=== PATIENT | male | born 1975 | race Caucasian/White ===

== ENCOUNTER 2019-08-02 09:19 | Outpatient (CLI) | payer OTHER, SELFPAY ==
[2019-08-02 09:34] LABS: Basophils Absolute Auto 0.1 K/mm3 (0.0-0.1); Eosinophils Absolute Auto 0.5 K/mm3 (0-0.3); Hematocrit 43.1 % (42.0-52.0); Hemoglobin 14.4 g/dL (14.0-18.0); Immature Granulocyte Absolute 0.02 K/mm3 (0.00-0.031); Immature Granulocyte Percent A 0.2 % (0-0.5); Lymphocytes Absolute Auto 3.19 K/mm3 (0.9-3.2); Lymphocytes Percent Auto 39.2 % (18.3-44.2); Mean Corpuscular HGB Conc 33.4 g/dl (32-36); Mean Corpuscular Hemoglobin 30.8 pg (26-34); Mean Corpuscular Volume 92.1 fl (80-100); Mean Platelet Volume 8.6 fl (7.4-10.4); Monocytes Absolute Auto 0.9 K/mm3 (0.1-0.6); Monocytes Percent Auto 11.1 % (2.6-8.5); Neutrophils Absolute Auto 3.5 K/mm3 (1.3-6.7); Neutrophils Percent Auto 42.5 % (45.5-73.1); Platelet Count Result 322 k/mm3 (150-375); Red Blood Count 4.68 M/mm3 (4.6-6.20); Red Cell Distribution Width 12.8 % (11.5-14.5); White Blood Count 8.1 K/mm3 (4.5-10.0)
[2019-08-02 11:32] LABS: Alanine Aminotransferase 36 U/L (4-50); Albumin Level 4.5 g/dL (3.5-5.1); Alkaline Phosphatase 88 U/L (38-126); Aspartate Amino Transferase 40 U/L (17-59); Bilirubin,Total 0.4 mg/dL (0.2-1.3); Blood Urea Nitrogen 10 mg/dL (9-20); CRP < 0.5 mg/dL (<1.0); Calcium 9.2 mg/dL (8.4-10.2); Carbon Dioxide 28 mmol/L (22-30); Chloride 105 mmol/L (98-107); Estimated Glomerular Filt Rate > 60; Glucose 83 mg/dL (75-110); Potassium 4.5 mmol/L (3.4-5.0); Sodium 138 mmol/L (137-145)
[2019-08-02 17:13] LABS: Erythrocyte Sedimentation Rate 13 mm/hr (0-20)
== END 2019-08-02 09:20 | disposition home or self-care (01) ==
LOC: ANHLAB 09:21
PROVIDERS: Visit Provider Internal Medicine Hematology & Oncology
DX: D72.829 Elevated white blood cell count, unspecified (principal)
CPT/HCPCS: 36415; 80053; 85025; 85652; 86140; 88184

== ENCOUNTER 2019-11-01 11:25 | Emergency (ER) | payer OTHER, SELFPAY ==
[2019-11-01 11:35] VITALS: BP 136/81; PULSE 82; RESP 16; TEMP 37.7; O2SAT 99
--- NOTE | 2019-11-01 11:38 | ED.URI ---
HPI - URI/Sore Throat General Chief Complaint: Upper Respiratory Infection Stated Complaint: possible sinus infection Time Seen by Provider: 11/01/19 11:40 Source: patient and RN notes reviewed History of Present Illness HPI Narrative: Patient is a 43-year-old male who presents the urgent care with complaints of an upper respiratory infection/sinus infection. Patient states he typically goes to his regular doctor but she was unable to get him in. Patient states that she tells him to use the [id number] remedies and he gets better . Patient states is been ongoing for approximately 3 weeks and off and on he has improved. Patient states that he does not want any antibiotic therapy for his sinusitis or prescriptions for [id number] medication that he needs a release back to work . Patient denies any fever, nausea, vomiting, shortness of breath or wheezing. States that he has been using the Mucinex, Sanjana and Sudafed as directed by his provider in the past. No other acute complaints. Patient aware of the plan of care. Related Data Home Medications Medication Instructions Recorded Confirmed No Home Medications 11/01/19 11/01/19 Allergies Allergy/AdvReac Type Severity Reaction Status Date / Time No Known Allergies Allergy Unverified 06/16/18 12:31 Review of Systems Review of Systems: Narrative: CONSTITUTIONAL: Denies fever, chills, or sweats. EYES: Denies visual changes, redness, or discharge. ENT: Reports of head congestion, rhinorrhea, stuffy nose and facial pressure CARDIOVASCULAR: Denies chest pain, palpitations, or edema. RESPIRATORY: Denies cough or dyspnea. GASTROINTESTINAL: Denies abdominal pain, nausea, vomiting, or diarrhea. GENITOURINARY: Denies dysuria or hematuria. SKIN: Denies rash or itching. MUSCULOSKELETAL: Denies back pain, joint pain, or myalgia. NEUROLOGIC: Denies headache, numbness, or weakness. All other systems reviewed are negative, except as documented in HPI. [facility] Family History Family History (Updated 11/21/15 @ 09:54 by DOCTOR UNKNOWN) Sibling Patient's brother is in good health Mother Cerebrovascular accident Social History Social History Smoking status: Light tobacco smoker Second hand tobacco smoke exposure: No Alcohol intake: never Comments At the time of my signature, I reviewed and agree with the nursing past medical, surgical, social, and family history. There is no relevant family history pertinent to the patient complaint. Exam Narrative: Exam Narrative: GENERAL: This is a well-nourished, well-developed patient, in no apparent distress. HEAD: normocephalic, atraumatic. EYES: PERRL. Sclera clear/white. Vision is grossly intact. EARS: External ears normal, auditory canals clear and without drainage, TMs normal without perforation. Hearing grossly intact. NOSE: External nose normal with no obvious nasal discharge, nares without redness, no rhinorrhea. THROAT: Mucous membranes moist, posterior pharynx clear. Mild postnasal drainage NECK: Neck supple CARDIOVASCULAR: Regular rate and rhythm without murmurs, gallops, or rubs. RESPIRATORY: Clear to auscultation. Breath sounds equal bilaterally. No wheezes, rales, or rhonchi. SKIN: warm, intact with no suspicious lesions or rash, good texture and turgor. NEURO: awake, alert, and oriented to person, place and time. There were no obvious focal neurologic abnormalities. EXTREMITIES: No clubbing, cyanosis, or edema. Course Vital Signs Vital signs: Vital Signs Temperature 99.8 F H 11/01/19 11:35 Pulse Rate 82 11/01/19 11:35 Respiratory Rate 16 11/01/19 11:35 Blood Pressure 136/81 11/01/19 11:35 Pulse Oximetry 99 11/01/19 11:35 Temperature 99.8 F H 11/01/19 11:35 Pulse Rate 82 11/01/19 11:35 Respiratory Rate 16 11/01/19 11:35 Blood Pressure 136/81 11/01/19 11:35 Pulse Oximetry 99 11/01/19 11:35 Reviewed MDM - URI/Sore Throat MDM Narrative Medical decision making n
== END 2019-11-01 11:44 | disposition left against medical advice (07) ==
PROVIDERS: Emergency Provider Nurse Practitioner Family; PCP Family Medicine
DX: J32.9 Chronic sinusitis, unspecified (principal)
CPT/HCPCS: 99211; G0463

== ENCOUNTER 2020-03-05 12:58 | Outpatient (CLI) | payer OTHER, SELFPAY ==
[2020-03-05 13:19] LABS: Basophils Absolute Auto 0.1 K/mm3 (0.0-0.1); Basophils Percent Auto 1.1 % (0.2-1.2); Eosinophils Absolute Auto 0.1 K/mm3 (0-0.3); Eosinophils Percent Auto 2.3 % (0-4.4); Hematocrit 43.5 % (42.0-52.0); Hemoglobin 14.5 g/dL (14.0-18.0); Immature Granulocyte Absolute 0.01 K/mm3 (0.00-0.031); Immature Granulocyte Percent A 0.2 % (0-0.5); Lymphocytes Absolute Auto 2.65 K/mm3 (0.9-3.2); Lymphocytes Percent Auto 46.6 % (18.3-44.2); Mean Corpuscular HGB Conc 33.3 g/dl (32-36); Mean Corpuscular Hemoglobin 30.6 pg (26-34); Mean Corpuscular Volume 91.8 fl (80-100); Mean Platelet Volume 8.6 fl (7.4-10.4); Monocytes Absolute Auto 0.6 K/mm3 (0.1-0.6); Monocytes Percent Auto 9.7 % (2.6-8.5); Neutrophils Absolute Auto 2.3 K/mm3 (1.3-6.7); Neutrophils Percent Auto 40.1 % (45.5-73.1); Platelet Count Result 355 k/mm3 (150-375); Red Blood Count 4.74 M/mm3 (4.6-6.20); Red Cell Distribution Width 12.4 % (11.5-14.5); White Blood Count 5.7 K/mm3 (4.5-10.0)
[2020-03-05 14:37] LABS: Blood Urea Nitrogen 9 mg/dL (8-26); Carbon Dioxide 33 mmol/L (22-30); Chloride 102 mmol/L (98-109); Estimated Glomerular Filt Rate > 60; Potassium 4.3 mmol/L (3.5-4.9); Sodium 142 mmol/L (138-146)
[2020-03-05 14:38] LABS: Glucose 86 mg/dL (70-105)
[2020-03-05 16:41] LABS: CRP 0.6 mg/dL (<1.0)
[2020-03-05 17:00] LABS: Erythrocyte Sedimentation Rate 14 mm/hr (0-20)
== END 2020-03-05 12:59 | disposition home or self-care (01) ==
LOC: ANHLAB 12:59
PROVIDERS: PCP Family Medicine; Visit Provider Internal Medicine Hematology & Oncology
DX: D72.829 Elevated white blood cell count, unspecified (principal)
CPT/HCPCS: 36415; 80048; 85025; 85652; 86140

== ENCOUNTER 2022-10-03 14:09 | Emergency (ER) | payer OTHER, SELFPAY ==
--- NOTE | ~2022-10-03 | CT_ITS ---
EXAMINATION: CT abdomen pelvis wo con DATE: 10/03/2022 16:37 INDICATION: Hematuria. TECHNIQUE: Computed tomography (CT) of the abdomen and pelvis was performed without intravenous contr ast. Automated exposure control and iterative reconstruction technique were employed. The dose-length product was 331.78 mGy-cm. COMPARISON: None. FINDINGS: The visualized portions of the lung bases demonstrate mild atelectasis. No pleural effusion . The heart size is normal. No pericardial effusion. The liver, gallbladder, spleen, pancreas, adrena l glands, and kidneys are normal. There are two 2 mm stones in left kidney. The prostate is mildly en larged. There are no dilated loops of bowel. The appendix is normal. There are no pathologically enla rged lymph nodes. There is no free intraperitoneal fluid. There is an ill-defined mass at right poste rior bladder wall. There is mild thoracic and lumbar spondylosis. IMPRESSION: 1. Ill-defined mass at right posterior bladder wall, which may be hematoma or urothelial carcinoma. 2. Small nonobstructing left kidney stones. Reviewed, dictated and finalized at location E. IMPRESSION: 1. Ill-defined mass at right posterior bladder wall, which may be hematoma or u rothelial carcinoma. 2. Small nonobstructing left kidney stones.
[2022-10-03 14:26] VITALS: BP 103/76; PULSE 70; RESP 18; TEMP 36.6; O2SAT 99
[2022-10-03 14:45] LABS: Appearance Urine Turbid (Clear); Bacteria Urine None Seen /hpf; Bilirubin Urine Negative (Negative); Blood Urine 3+ (Negative); Color Urine Yellow (Yellow); Glucose Urine UA Negative (Negative); Ketones Urine Negative (Negative); Leukocyte Esterase Ur Trace LEU/UL (Negative); Nitrate Urine Negative (Negative); Non Pathogenic Casts 0-2; Protein Urine 2+ mg/dL (Negative); RBC Urine >100 /hpf (0-2); Specific Grav Ur 1.018 (1.001-1.035); Squamous Epithelial Cell Urine Occasional /hpf (Few); WBC Urine 21-50 /hpf
[2022-10-03 14:50] LABS: Add Urine Microscopic? YES
--- NOTE | 2022-10-03 16:18 | ED.GENADULT ---
HPI - General Adult General Chief complaint: Urogenital-Male Stated complaint: blood in urine passing a blood clot Time Seen by Provider: 10/03/22 15:08 History of Present Illness HPI narrative: 46-year-old male presented emergency department for evaluation of hematuria. Patient reports that he did pass three clots yesterday and 1 clot today. Patient describes some increased urinary pressure but denies any pain. Patient denies any flank pain or dysuria. Patient has no prior history of kidney stones. Patient is not on any blood thinners. Related Data Home Medications Medication Instructions Recorded Confirmed No Home Medications 11/01/19 11/01/19 Allergies Allergy/AdvReac Type Severity Reaction Status Date / Time No Known Allergies Allergy Verified 10/03/22 15:31 Review of Systems Review of Systems: All systems reviewed & are unremarkable except as noted in HPI and below [facility] Family History Family History (Updated 11/21/15 @ 09:54 by DOCTOR UNKNOWN) Sibling Patient's brother is in good health Mother Cerebrovascular accident Social History Social History Smoking status: Light tobacco smoker Second hand tobacco smoke exposure: No Alcohol intake: never Exam Narrative: APPEARANCE: Well appearing, no pain, no distress, well-nourished. HEAD: normocephalic, atraumatic. EYES: PERRLA/EOMI, conjunctivae clear. NOSE: Normal no drainage NECK: Supple. No adenopathy, no masses. RESPIRATORY: Airway patent, respirations nonlabored. Clear to auscultation bilaterally, no rales, rhonchi, wheezing. CARDIOVASCULAR: Regular rate and rhythm without murmurs rubs or gallops. ABDOMINAL: Soft, nondistended, suprapubic tenderness to palpation MUSCULOSKELETAL: Moves all extremities. Strength/ROM intact, No edema, No calf tenderness. NEURO: Alert. Cranial nerves II through XII intact. Grossly intact SKIN: Warm, dry. Normal Color Course Course Emergency Course: 38-year-old male presented the ED for evaluation of passing blood clots. Patient is afebrile with no leukocytosis and does have a stable hemoglobin. No significant electrolyte abnormalities. Patient does have greater than 100 red blood cells with 21-50 white blood cells. Patient denies any flank pain and denies any prior history of kidney stones. CT scan showed no obstructing kidney stones but did show evidence of a ill-defined bladder mass versus hematoma. Patient did have some retained urine but declined a Dias catheter. Patient and family were updated on the diagnosis and need for follow-up with his urologist in order to be evaluated for potential bladder cancer. Vital Signs Vital signs: Vital Signs Temperature 98 F 10/03/22 14:26 Pulse Rate 70 10/03/22 14:26 Respiratory Rate 18 10/03/22 14:26 Blood Pressure 103/76 10/03/22 14:26 Pulse Oximetry 99 10/03/22 14:26 Oxygen Delivery Room Air 10/03/22 14:26 Temperature 98 F 10/03/22 14:26 Pulse Rate 75 10/03/22 17:00 Respiratory Rate 10/03/22 17:00 Blood Pressure 108/72 10/03/22 17:00 Pulse Oximetry 99 10/03/22 17:00 Oxygen Delivery Room Air 10/03/22 14:26 Medical Decision Making Differential Diagnosis Differential Diagnosis: UTI, urinary retention, bladder mass, bladder hematoma Vital Signs Vital Signs: Vital Signs Temperature 98 F 10/03/22 14:26 Pulse Rate 70 10/03/22 14:26 Respiratory Rate 18 10/03/22 14:26 Blood Pressure 103/76 10/03/22 14:26 Pulse Oximetry 99 10/03/22 14:26 Oxygen Delivery Room Air 10/03/22 14:26 Temperature 98 F 10/03/22 14:26 Pulse Rate 75 10/03/22 17:00 Respiratory Rate 10/03/22 17:00 Blood Pressure 108/72 10/03/22 17:00 Pulse Oximetry 99 10/03/22 17:00 Oxygen Delivery Room Air 10/03/22 14:26 Lab Data Lab results reviewed: Yes I reviewed the patient's lab results. 10/03/22 16:46 10/03/22 16:46 Labs: Lab Results
[2022-10-03 17:00] VITALS: BP 108/72; PULSE 75; RESP 15; O2SAT 99
[2022-10-03 17:00] LABS: Basophils Absolute Auto 0.1 K/mm3 (0.0-0.1); Basophils Percent Auto 0.9 % (0.2-1.2); Eosinophils Absolute Auto 0.1 K/mm3 (0-0.3); Hematocrit 39.3 % (42.0-52.0); Hemoglobin 13.1 g/dL (14.0-18.0); Immature Granulocyte Absolute 0.02 K/mm3 (0.00-0.031); Immature Granulocyte Percent A 0.3 % (0-0.5); Lymphocytes Percent Auto 35.2 % (18.3-44.2); Mean Corpuscular HGB Conc 33.3 g/dl (32-36); Mean Corpuscular Hemoglobin 31.5 pg (26-34); Mean Corpuscular Volume 94.5 fl (80-100); Mean Platelet Volume 8.7 fl (7.4-10.4); Monocytes Absolute Auto 0.5 K/mm3 (0.1-0.6); Monocytes Percent Auto 6.7 % (2.6-8.5); Neutrophils Absolute Auto 4.5 K/mm3 (1.3-6.7); Neutrophils Percent Auto 55.9 % (45.5-73.1); Platelet Count Result 306 k/mm3 (150-375); Red Blood Count 4.16 M/mm3 (4.6-6.20); Red Cell Distribution Width 12.9 % (11.5-14.5)
[2022-10-03 17:09] LABS: Alanine Aminotransferase 42 U/L (6-50); Albumin Level 4.5 g/dL (3.5-5.1); Alkaline Phosphatase 68 U/L (38-126); Anion Gap 5 mmol/L (8-16); Aspartate Amino Transferase 44 U/L (17-59); Bilirubin,Total 0.5 mg/dL (0.2-1.3); Blood Urea Nitrogen 14 mg/dL (9-20); Calcium 8.9 mg/dL (8.4-10.2); Carbon Dioxide 31 mmol/L (22-30); Chloride 103 mmol/L (98-107); Estimated CRCL calculation 96 ml/min; Estimated Glomerular Filt Rate > 60; Glucose 82 mg/dL (65-110); Potassium 4.2 mmol/L (3.4-5.0); Sodium 139 mmol/L (137-145)
== END 2022-10-03 18:41 | disposition home or self-care (01) ==
PROVIDERS: Emergency Medicine; Emergency Provider Emergency Medicine; PCP Physician Assistant
DX: R33.9 Retention of urine, unspecified (principal); R31.9 Hematuria, unspecified; F17.200 Nicotine dependence, unspecified, uncomplicated
CPT/HCPCS: 36415; 74176; 80053; 81001; 85025; 87086; 99284

== ENCOUNTER 2022-10-24 09:02 | Emergency (ER) | payer OTHER, SELFPAY ==
[2022-10-24 09:17] VITALS: BP 122/94; PULSE 82; RESP 16; TEMP 36.7; O2SAT 100
--- NOTE | 2022-10-24 09:34 | ED.GENADULT ---
HPI - General Adult General Chief complaint: Headache Stated complaint: Abdominal Pain/Throat/Headache Time Seen by Provider: 10/24/22 09:34 Source: patient Mode of arrival: ambulatory Limitations: no limitations Related Data Allergies Allergy/AdvReac Type Severity Reaction Status Date / Time No Known Allergies Allergy Verified 10/24/22 09:12 Review of Systems Review of Systems: CONSTITUTIONAL: Denies fever, chills, or sweats. EYES: Denies visual changes, redness, or discharge. ENT: Denies rhinorrhea, congestion, sore throat, or otalgia. CARDIOVASCULAR: Denies chest pain, palpitations, or edema. RESPIRATORY: Denies cough or dyspnea. GASTROINTESTINAL: Denies abdominal pain, nausea, vomiting, or diarrhea. GENITOURINARY: Denies dysuria or hematuria. SKIN: Denies rash or itching. MUSCULOSKELETAL: Denies back pain, joint pain, or myalgia. NEUROLOGIC: Denies headache, numbness, or weakness. PSYCHIATRIC: Denies anxiety or depression. PMFSH Past Medical History Medical History Acute pain of left knee Encounter for screening for malignant neoplasm of prostate History of cigar smoking Marijuana use Other chronic pain Smoking Family History Family History Sibling Patient's brother is in good health Mother Cerebrovascular accident Social History Social History Smoking status: Light tobacco smoker Second hand tobacco smoke exposure: No Alcohol intake: never Comments At the time of my signature I agree with nursing past medical history, surgical, social, and family history. There is no relevant family history pertinent to the presenting complaint. Exam Narrative: GENERAL: Well-appearing, well-nourished, and in no acute distress. HEAD: Normocephalic, atraumatic. EYES: PERRLA and EOMI. ENT: Nares clear, no rhinorrhea or epistaxis. Mucous membranes moist. NECK: Supple. No lymphadenopathy CHEST: Clear to auscultation. No respiratory distress. HEART: Regular rate and rhythm. No murmur heard. Normal peripheral pulses. ABDOMEN: Soft, nontender, nondistended, normal active bowel sounds. EXTREMITIES: Normal range of motion. No edema. SKIN: Warm, dry, no rash. NEURO: No focal deficits. Alert and oriented x3. Course Course Level of Care: Express Care Visit Vital Signs Vital signs: Vital Signs Temperature 36.7 C 10/24/22 09:17 Pulse Rate 82 10/24/22 09:17 Respiratory Rate 16 10/24/22 09:17 Blood Pressure 122/94 H 10/24/22 09:17 Pulse Oximetry 100 10/24/22 09:17 Oxygen Delivery Room Air 10/24/22 09:17 Temperature 36.7 C 10/24/22 09:17 Pulse Rate 82 10/24/22 09:17 Respiratory Rate 16 10/24/22 09:17 Blood Pressure 122/94 H 10/24/22 09:17 Pulse Oximetry 100 10/24/22 09:17 Oxygen Delivery Room Air 10/24/22 09:17 Vital signs reviewed. Medical Decision Making Differential Diagnosis Differential Diagnosis: Differential diagnosis: Allergic rhinitis, chronic sinusitis, tonsillitis, acute sinusitis, infectious mononucleosis, seasonal influenza, pertussis, diphtheria, meningococcal disease, viral syndrome, viral bronchitis, RSV, COVID-19 Appendicitis, ovarian torsion, gallbladder disease, ovarian torsion, pancreatitis, lower lobe pneumonia,AAA, AMI or ACS, DKA, diverticulitis. Vital Signs Vital Signs: Vital Signs Temperature 36.7 C 10/24/22 09:17 Pulse Rate 82 10/24/22 09:17 Respiratory Rate 16 10/24/22 09:17 Blood Pressure 122/94 H 10/24/22 09:17 Pulse Oximetry 100 10/24/22 09:17 Oxygen Delivery Room Air 10/24/22 09:17 Temperature 36.7 C 10/24/22 09:17 Pulse Rate 82 10/24/22 09:17 Respiratory Rate 16 10/24/22 09:17 Blood Pressure 122/94 H 10/24/22 09:17 Pulse Oximetry 100 10/24/22 09:17 Oxygen Delivery Room Air 10/24/22 09:17 Critical Care Time Critical Care Time Critical Care Time: No Discharge P
== END 2022-10-24 09:50 | disposition home or self-care (01) ==
PROVIDERS: Emergency Provider Nurse Practitioner Family; PCP Physician Assistant
DX: R11.0 Nausea (principal); J01.10 Acute frontal sinusitis, unspecified; R51.9 Headache, unspecified; F17.290 Nicotine dependence, other tobacco product, uncomplicated
CPT/HCPCS: 99213; G0463

== ENCOUNTER 2022-11-22 20:05 | Emergency (ER) | payer OTHER, SELFPAY ==
--- NOTE | ~2022-11-22 | CT_ITS ---
EXAMINATION: CT abdomen pelvis w con INDICATION: Hematuria TECHNIQUE: Computed tomographic images of the abdomen and pelvis were obtained after the administrati on of 100 cc of Omnipaque 350 intravenous contrast. The dose-length product (DLP) was 322.35 mGy-cm. Automated exposure control and iterative reconstruction technique were employed. COMPARISON: 10/03/2022 FINDINGS: The lung bases are clear. The heart size is normal. The liver, spleen, pancreas, gallbladde r, and adrenal glands are normal. The kidneys are unremarkable. There is a 1.5 x 1.3 cm soft tissue d ensity mass of the right posterior bladder wall. The prostate is enlarged. No pathologically enlarged abdominal or pelvic lymph nodes are identified. No free intraperitoneal gas or evidence of bowel obs truction. The appendix is normal. There is mild lumbar spondylosis. IMPRESSION: 1. 1.5 cm soft tissue density mass of the right posterior bladder wall suspicious for urothelial carc inoma. Urologic evaluation is recommended. Reviewed, dictated and finalized at location A. IMPRESSION: 1. 1.5 cm soft tissue density mass of the right posterior bladder wall suspicio us for urothelial carcinoma. Urologic evaluation is recommended.
[2022-11-22 20:05] VITALS: BP 126/79; PULSE 86; RESP 18; TEMP 36.6; O2SAT 99
[2022-11-22 21:29] LABS: Appearance Urine Cloudy (Clear); Bacteria Urine 2+ /hpf; Bilirubin Urine Negative (Negative); Blood Urine 3+ (Negative); Color Urine Yellow (Yellow); Glucose Urine UA Negative (Negative); Ketones Urine Trace mg/dL (Negative); Leukocyte Esterase Ur Negative LEU/UL (Negative); Need Manual Microscopic Reviewed; Nitrate Urine Negative (Negative); Protein Urine 3+ mg/dL (Negative); RBC Urine >100 /hpf (0-2); Specific Grav Ur 1.022 (1.001-1.035); Squamous Epithelial Cell Urine None seen /hpf (Few); WBC Urine >100 /hpf; pH Urine 6.5 (5.0-9.0)
[2022-11-22 21:31] LABS: Add Urine Microscopic? YES
--- NOTE | 2022-11-22 23:29 | ED.MALEGU ---
HPI - Male Genitourinary General Chief complaint: Urogenital-Male Stated complaint: hematuria Time Seen by Provider: 11/22/22 23:18 History of Present Illness HPI Narrative: 47-year-old male with a history of smoking and hematuria reports for evaluation for 2-3 episodes of hematuria x3 hours. Patient states this is happened before he has passed multiple blood clots that he was evaluated in our ED. He had a CT scan done at that time which showed an ill-defined mass at the right posterior bladder wall, which may be a hematoma or urothelial carcinoma. There is also small nonobstructing left kidney stones seen on CT imaging as well. Patient states he did follow-up with his urologist who told him to go to [facility] if he had more problems because he cannot see our records in our ER. Patient came to this ED today because he said it is closer to home. Patient states his urologist told him that they should be contacting him to set up scheduling for further imaging, however he has not heard from U. The patient is also reporting urinary frequency and urgency starting today and abdominal fullness throughout his abdomen for the past few weeks. Patient states that it feels like he has to force his urine out. He denies fever, body aches or chills, flank pain, history of ureterolithiasis, or vomiting, scrotal pain or edema, penile pain or edema, penile lesions, dysuria. He denies syncope, lightheadedness, chest pain or shortness of breath. He states that the blood was only a small amount each time he urinated and dissipated as soon as it hit the toilet. Related Data Allergies Allergy/AdvReac Type Severity Reaction Status Date / Time No Known Allergies Allergy Verified 11/22/22 23:42 Review of Systems Review of Systems: CONSTITUTIONAL: Denies fever, chills EYES: Denies visual changes, redness, or discharge. ENT: Denies rhinorrhea, congestion, sore throat, or otalgia. CARDIOVASCULAR: Denies chest pain, palpitations, or edema. RESPIRATORY: Denies cough or dyspnea. GASTROINTESTINAL: See HPI GENITOURINARY: See HPI SKIN: Denies rash or itching. MUSCULOSKELETAL: Denies back pain, joint pain, or myalgia. NEUROLOGIC: Denies headache, numbness, dizziness, or weakness. PSYCHIATRIC: Denies anxiety or depression. [facility] Past Medical History Medical History Acute pain of left knee Encounter for screening for malignant neoplasm of prostate History of cigar smoking Marijuana use Other chronic pain Smoking Family History Family History Sibling Patient's brother is in good health Mother Cerebrovascular accident Social History Social History Smoking status: Light tobacco smoker Second hand tobacco smoke exposure: No Alcohol intake: never Exam Narrative: GENERAL: Well-appearing, in no acute distress. Patient resting comfortably in exam bed. He is pleasant and conversational. HEAD: Normocephalic EYES: PERRLA ENT: Nares clear. Mucous membranes moist. Oropharynx without tonsillar hypertrophy exudate or other lesions. NECK: Supple. CHEST: No respiratory distress. Clear to auscultation, no adventitious breath sounds. HEART: Regular rate and rhythm. No murmur heard. Normal peripheral pulses. ABDOMEN: Normal active bowel sounds. Abdomen soft with tenderness in the suprapubic region. No overlying skin changes. No guarding or rigidity. No CVA tenderness. EXTREMITIES: Normal range of motion. No edema. SKIN: Warm, dry, no rash. NEURO: No focal deficits. Alert and oriented x3. PSYCH: Normal mood and affect. Course Vital Signs Vital signs: Vital Signs Temperature 97.9 F 11/22/22 20:05 Pulse Rate 86 11/22/22 20:05 Respiratory Rate 18 11/22/22 20:05 Blood Pressure 126/79 11/22/22 20:05 Pulse Oximetry 99 11/22/22 20:05 Oxygen Delivery Room Air 11/22/22 20:05 Temperature 97.9 F 11/22/22 20
[2022-11-22] MEDS: SODIUM CHLORIDE 0.9% IV 1,000 ML 999 ML IV CONT (23:40)
[2022-11-23 00:01] LABS: Alanine Aminotransferase 42 U/L (6-50); Albumin Level 4.9 g/dL (3.5-5.1); Alkaline Phosphatase 97 U/L (38-126); Anion Gap 10 mmol/L (8-16); Aspartate Amino Transferase 48 U/L (17-59); Bilirubin,Total 0.5 mg/dL (0.2-1.3); Blood Urea Nitrogen 17 mg/dL (9-20); Calcium 9.4 mg/dL (8.4-10.2); Carbon Dioxide 28 mmol/L (22-30); Chloride 99 mmol/L (98-107); Estimated CRCL calculation 81 ml/min; Estimated Glomerular Filt Rate > 60; Glucose 94 mg/dL (65-110); Lipase 51 U/L (23-300); Potassium 4.1 mmol/L (3.4-5.0); Sodium 137 mmol/L (137-145)
[2022-11-23 00:24] LABS: Basophils Absolute Auto 0.1 K/mm3 (0.0-0.1); Basophils Percent Auto 0.7 % (0.2-1.2); Eosinophils Absolute Auto 0.1 K/mm3 (0-0.3); Eosinophils Percent Auto 1.2 % (0-4.4); Hematocrit 43.1 % (42.0-52.0); Hemoglobin 14.4 g/dL (14.0-18.0); Immature Granulocyte Absolute 0.02 K/mm3 (0.00-0.031); Immature Granulocyte Percent A 0.2 % (0-0.5); Lymphocytes Absolute Auto 2.83 K/mm3 (0.9-3.2); Lymphocytes Percent Auto 31.5 % (18.3-44.2); Mean Corpuscular HGB Conc 33.4 g/dl (32-36); Mean Corpuscular Hemoglobin 31.2 pg (26-34); Mean Corpuscular Volume 93.3 fl (80-100); Mean Platelet Volume 8.7 fl (7.4-10.4); Monocytes Absolute Auto 0.7 K/mm3 (0.1-0.6); Monocytes Percent Auto 7.2 % (2.6-8.5); Neutrophils Absolute Auto 5.3 K/mm3 (1.3-6.7); Neutrophils Percent Auto 59.2 % (45.5-73.1); Platelet Count Result 333 k/mm3 (150-375); Red Blood Count 4.62 M/mm3 (4.6-6.20)
[2022-11-23 00:45] VITALS: BP 110/80; PULSE 57; RESP 20; O2SAT 100
[2022-11-23 01:27] VITALS: BP 110/73; PULSE 78; RESP 17; O2SAT 100
[2022-11-23] MEDS: SULFAMETHOXAZOLE/TRIMETHOPRIM 800/160 MG DS TABLET 1 TAB PO (01:49)
== END 2022-11-23 02:12 | disposition home or self-care (01) ==
PROVIDERS: Emergency Medicine; Emergency Provider Physician Assistant; PCP Physician Assistant
DX: R33.9 Retention of urine, unspecified (principal); N32.89 Other specified disorders of bladder; R82.998 Other abnormal findings in urine; F17.290 Nicotine dependence, other tobacco product, uncomplicated
CPT/HCPCS: 36415; 51702; 74177; 80053; 81001; 83690; 85025; 87086; 87088; 96360; 99284; A9270; J7030; Q9967

== ENCOUNTER 2022-11-28 01:04 | Emergency (ER) | payer OTHER, SELFPAY ==
[2022-11-28 01:08] VITALS: BP 109/64; PULSE 70; RESP 15; TEMP 36.3; O2SAT 98
--- NOTE | 2022-11-28 02:04 | ED.GENADULT ---
HPI - General Adult General Chief complaint: Urogenital-Male Stated complaint: clogged catheter Time Seen by Provider: 11/28/22 01:56 History of Present Illness HPI narrative: 47-year-old male with indwelling catheter due to bladder cancer presenting with a clogged catheter. Stop draining around 4 5 today. He developed abdominal pain fullness. Patient does not use blood thinners/AC. No other complaints. Related Data Allergies Allergy/AdvReac Type Severity Reaction Status Date / Time No Known Allergies Allergy Verified 11/28/22 01:13 PMF Past Medical History Medical History Acute pain of left knee Encounter for screening for malignant neoplasm of prostate History of cigar smoking Marijuana use Other chronic pain Smoking Family History Family History Sibling Patient's brother is in good health Mother Cerebrovascular accident Social History Social History Smoking status: Light tobacco smoker Second hand tobacco smoke exposure: No Alcohol intake: never Exam Narrative: APPEARANCE: No apparent distress. Head: atraumatic. EYES: EOMI, NOSE: Atraumatic NECK: Trachea midline RESPIRATORY: No increased rate of breathing CARDIOVASCULAR: RRR, ABDOMINAL: after the catheter was flushed and drained the abdomen is soft nontender no guarding rebound MUSCULOSKELETAl: No obvious deformities NEURO: Alert. Moving 4/4 extremities SKIN:: Warm, dry. Normal color PSYCHIATRIC: Normal affect point of care bladder ultrasound revealed a decompressed bladder with balloon in place. No visualized clots. Course Vital Signs Vital signs: Vital Signs Temperature 97.4 F L 11/28/22 01:08 Pulse Rate 70 11/28/22 01:08 Respiratory Rate 15 11/28/22 01:08 Blood Pressure 109/64 11/28/22 01:08 Pulse Oximetry 98 11/28/22 01:08 Oxygen Delivery Room Air 11/28/22 01:08 Temperature 97.4 F L 11/28/22 01:08 Pulse Rate 70 11/28/22 01:08 Respiratory Rate 15 11/28/22 01:08 Blood Pressure 109/64 11/28/22 01:08 Pulse Oximetry 98 11/28/22 01:08 Oxygen Delivery Room Air 11/28/22 01:08 Medical Decision Making MDM Narrative Medical decision making narrative: -Course: 47-year-old with possible bladder cancer an indwelling Dias presenting with a clogged catheter. It was flushed the emergency department and is now function and appropriately. Point of care ultrasound revealed a decompressed bladder with no large clots. patient was taught how to flush his Dias catheter and given supplies. He is comfortable going home and following up with his urologist. He will return emergency department if he is unable to pass urine or flush catheter on his own. -DDX includes but is not limited to: Clogged catheter, dislodged catheter -Co-morbidities complicating care: bladder cancer -Shared decision making / Disposition: discharged. Vital Signs Vital Signs: Vital Signs Temperature 97.4 F L 11/28/22 01:08 Pulse Rate 70 11/28/22 01:08 Respiratory Rate 15 11/28/22 01:08 Blood Pressure 109/64 11/28/22 01:08 Pulse Oximetry 98 11/28/22 01:08 Oxygen Delivery Room Air 11/28/22 01:08 Temperature 97.4 F L 11/28/22 01:08 Pulse Rate 70 11/28/22 01:08 Respiratory Rate 15 11/28/22 01:08 Blood Pressure 109/64 11/28/22 01:08 Pulse Oximetry 98 11/28/22 01:08 Oxygen Delivery Room Air 11/28/22 01:08 Lab Data Labs: Urine Characteristics Clots,Cloudy Discharge Plan Discharge Clinical Impression: Dias catheter in place Patient Disposition: Home, Self-Care Condition: Stable Instructions: Antibiotic Form, Dias Catheter Placement and Care (ED) Additional Instructions: please follow-up with urologist for further management. If your Dias stopped draining return emergen
[2022-11-28 02:11] LABS: Bacteria Urine None Seen /hpf; Non Pathogenic Casts 0-2; RBC Urine >100 /hpf (0-2); Squamous Epithelial Cell Urine Occasional /hpf (Few); WBC Urine 21-50 /hpf
[2022-11-28 02:32] VITALS: BP 116/68; PULSE 72; RESP 14; O2SAT 98
[2022-11-28 02:35] LABS: Appearance Urine Turbid (Clear); Bilirubin Urine Negative (Negative); Blood Urine 3+ (Negative); Glucose Urine UA Negative (Negative); Ketones Urine Negative (Negative); Leukocyte Esterase Ur 2+ LEU/UL (Negative); Nitrate Urine Negative (Negative); Protein Urine 2+ mg/dL (Negative); pH Urine 7.5 (5.0-9.0)
[2022-11-28 02:36] LABS: Color Urine Light Brown (Yellow)
[2022-11-28 02:37] LABS: Add Urine Microscopic? YES
== END 2022-11-28 02:33 | disposition home or self-care (01) ==
LOC: ANHED 02:17
PROVIDERS: Emergency Provider Emergency Medicine; PCP Physician Assistant
DX: Z46.6 Encounter for fitting and adjustment of urinary device (principal); F17.200 Nicotine dependence, unspecified, uncomplicated
CPT/HCPCS: 81001; 87086; 99283

== ENCOUNTER 2022-11-28 18:25 | Observation (INO) | payer OTHER, SELFPAY ==
--- NOTE | ~2022-11-28 | CT_ITS ---
EXAMINATION: CT abdomen pelvis w con DATE: 11/28/2022 21:31 INDICATION: hematuria protocol TECHNIQUE: Computed tomography (CT) of the abdomen and pelvis was performed with 100 mL Omnipaque-350 intravenous contrast. Automated exposure control and iterative reconstruction technique were employe d. The dose-length product was 297.35 mGy-cm. COMPARISON: 11/23/2022. FINDINGS: Lower thorax: Unremarkable Liver: Normal. Biliary/Gallbladder: Gallbladder is normal. No bile duct dilation. Pancreas: No mass or duct dilation. Spleen: Normal. Adrenals:No mass. Kidneys: At least partially duplicated collecting system on the left. No suspicious mass, obstructing stone, or hydronephrosis. GI tract: Mild distal esophageal and gastric wall edema. No small or large bowel dilation. Appendix i s unchanged in appearance and nondilated. Mesentery/Peritoneum: No ascites, mass, or free air. Retroperitoneum: No mass. Pelvis: Dias catheter in urinary bladder. Urinary bladder wall thickening. Intraluminal air. Large e nhancing mass at the base of the urinary bladder. A smaller right posterior mass is present but more difficult to differentiate given the decreased intraluminal bladder volume in today's study. There is moderate volume bladder fluid, despite the presence of a catheter. Soft Tissues: Soft tissues and body wall unremarkable. Bones: No acute osseous finding. IMPRESSION: Mild esophagitis/gastritis. Redemonstration of a multiple bladder masses. Moderate urinary bladder fluid despite the presence of a Dias catheter, correlate with catheter func tion. Bladder wall thickening which may be secondary to chronic obstruction, incomplete distention, and/or cystitis. Reviewed, dictated and finalized at location K. IMPRESSION: Mild esophagitis/gastritis. Redemonstration of a multiple bladder masses. Moderate urinary bladder fluid despite the presence of a Dias catheter, correl ate with catheter function. Bladder wall thickening which may be secondary to chronic obstruction, incomple te distention, and/or cystitis.
[2022-11-28 18:27] VITALS: BP 113/71; PULSE 80; RESP 18; TEMP 36.9; O2SAT 97
[2022-11-28 20:42] LABS: Basophils Absolute Auto 0.1 K/mm3 (0.0-0.1); Basophils Percent Auto 0.5 % (0.2-1.2); Eosinophils Absolute Auto 0.1 K/mm3 (0-0.3); Eosinophils Percent Auto 0.6 % (0-4.4); Hematocrit 38.5 % (42.0-52.0); Hemoglobin 13.1 g/dL (14.0-18.0); Immature Granulocyte Absolute 0.02 K/mm3 (0.00-0.031); Immature Granulocyte Percent A 0.2 % (0-0.5); Lymphocytes Percent Auto 18.9 % (18.3-44.2); Mean Corpuscular Hemoglobin 31.4 pg (26-34); Mean Corpuscular Volume 92.3 fl (80-100); Mean Platelet Volume 8.8 fl (7.4-10.4); Monocytes Absolute Auto 0.7 K/mm3 (0.1-0.6); Monocytes Percent Auto 5.8 % (2.6-8.5); Platelet Count Result 349 k/mm3 (150-375); Red Blood Count 4.17 M/mm3 (4.6-6.20); Red Cell Distribution Width 12.1 % (11.5-14.5); White Blood Count 12.2 K/mm3 (4.5-10.0)
[2022-11-28 20:51] LABS: Alanine Aminotransferase 38 U/L (6-50); Albumin Level 4.7 g/dL (3.5-5.1); Alkaline Phosphatase 89 U/L (38-126); Anion Gap 9 mmol/L (8-16); Aspartate Amino Transferase 40 U/L (17-59); Bilirubin,Total 0.3 mg/dL (0.2-1.3); Blood Urea Nitrogen 17 mg/dL (9-20); Carbon Dioxide 25 mmol/L (22-30); Chloride 103 mmol/L (98-107); Estimated CRCL calculation 76 ml/min; Estimated Glomerular Filt Rate > 60; Glucose 99 mg/dL (65-110); Sodium 137 mmol/L (137-145)
[2022-11-28 20:52] LABS: Prothrombin Time 13.3 Seconds (11.1-14.7)
[2022-11-28 20:53] LABS: Partial Thromboplastin Time 25.6 SECONDS (22.3-36.8)
--- NOTE | 2022-11-28 21:21 | PC.NURSE ---
Patient report given to HINA Dunaway. All questions answered and care of patient transferred.
--- NOTE | 2022-11-28 21:28 | ED.MALEGU ---
HPI - Male Genitourinary General Chief complaint: Urogenital-Male Stated complaint: catheter clogged Time Seen by Provider: 11/28/22 19:14 History of Present Illness HPI Narrative: Patient presented to the emergency department with persistent hematuria. He was diagnosed with hematuria and abnormal bladder findings last week. Dias was placed in the emergency department. He is scheduled to follow-up with the specialists at [facility] for a biopsy of his bladder. He has been told it is likely cancer. Patient has a history of smoking and continues to smoke now. He was in the emergency department yesterday because of decreased urine output from the Dias. It was flushed and he left against advice to go home and work. He returned today with recurrent problems. RN was able to replace Dias but he is still having bright red blood in his urine. He denies pain fevers or any other review of systems. He initially wanted to leave to go back to work. However he has yet to be seen by urologist. I verbalized concerns for constant blood loss and he chose to stay for further evaluation. He is accompanied by his and she contributes to the history. Related Data Home Medications Medication Instructions Recorded Confirmed aripiprazole 10 mg tablet 5 mg PO DAILY 11/29/22 11/29/22 aspirin 81 mg tablet,delayed 81 mg PO DAILY 11/29/22 11/29/22 release atorvastatin 20 mg tablet 20 mg PO DAILY 11/29/22 11/29/22 finasteride 5 mg tablet 5 mg PO DAILY 11/29/22 11/29/22 sertraline 50 mg tablet 50 mg PO DAILY 11/29/22 11/29/22 tamsulosin 0.4 mg capsule 0.4 mg PO DAILY 11/29/22 11/29/22 trazodone 50 mg tablet 50 mg PO QHS 11/29/22 11/29/22 Allergies Allergy/AdvReac Type Severity Reaction Status Date / Time pollen extracts Allergy Congested Verified 11/29/22 03:00 Review of Systems Review of Systems: All review of systems negative except for what is documented in the HPI [facility] Past Medical History Medical History History of cigar smoking Marijuana use Other chronic pain Smoking Vaping nicotine dependence, tobacco product Surgical History Surgical History (Updated 11/29/22 @ 06:37 by Emilia Beckman DO) History of oral surgery Complete dental extraction of all teeth Family History Family History (Updated 11/29/22 @ 06:39 by Emilia Beckman DO) Sibling Patient's brother is in good health Mother Cerebrovascular accident Skin cancer, basal cell Pacemaker, Onset Age: 34 Sinus arrest, Onset Age: 36 Father Unknown family medical history Social History Social History (Updated 11/29/22 @ 06:40 by Emilia Beckman DO) Social History: The patient lives with his of 9 years. He has 3 step children 10 step grandchildren and 1 great grandchild. They have 2 small dogs and 3 lizards in the home. The patient used to smoke a pack of cigarettes per day since he was a teenager. He converted to vaping 3 or 4 years ago. He smokes marijuana frequently and almost an every day basis. He denies significant alcohol use. Code status: Full code Surrogate decision maker: Smoking packs per day: 1 Smoking cigarettes per day: 20.0 Years smoked: 38 Smoking pack-years: 38.00 Smoking status: Current every day smoker Tobacco type: e-cigarettes/vaping Second hand tobacco smoke exposure: Yes Alcohol intake: never Substance use: current Substance use type: marijuana Last use: 11/29/22 Lack of Transportation: No Lack of Food: Never True Current Housing: I Have Housing Concerned About Future Housing: No Difficulty Paying Gas/Electric Bills: No Difficulty Paying for Meds: No Currently Unemployed: No Education: High School Diploma/GED Difficulty w/ Childcare or Family Care: No Spiritual care concerns: No Exam Narrative: GENERAL: Well-appearing, well-nourished, and in no acute distress. HEAD: Normocephalic, atraumatic. EYES: PERRLA and EOMI. ENT: Nares clear, no rhi
--- NOTE | 2022-11-28 21:53 | PC.NURSE ---
This RN assumed care of patient. This Rn took patient report from HINA Paiz.
[2022-11-28 23:15] VITALS: BP 108/76; PULSE 62; RESP 16; O2SAT 100
--- NOTE | 2022-11-28 23:32 | PC.NURSE ---
Assumed care of pt at this time. Catheter in place and patent. Box lunch given.
[2022-11-29] VITALS (7 sets, daily range): BP systolic 105–128; BP diastolic 64–85; PULSE 56–71; RESP 16–18; TEMP 36.1–36.8; O2SAT 98–100; BMI 20.9
--- NOTE | 2022-11-29 02:20 | ADMGEN ---
This patient, Deven Aguilera, was admitted to Medical Room 342-01. Patient/family oriented to hospital policies and general routines including ID bracelet, bed and alarms, visiting hours, pain management, procedures, bathroom and other care routines, personal items, smoking policy, room service/diet, and visiting hours. Information on how to activate the Rapid Response Team has been discussed. Patient/Family are encouraged to report perceived risks to care and to ask questions if they do not understand what they are told or what they should do.
--- NOTE | 2022-11-29 06:18 | PM.IMHP ---
H&P: HPI History of Present Illness Date/Time: 11/29/22 05:30 Chief Complaint: Clogged Dias catheter Narrative: 47-year-old male with past medical history of BPH, bipolar disorder, depression and tobacco use who presented to the ER with gross hematuria causing urinary catheter obstruction. The patient reports that he was diagnosed with BPH in May of this year. He was seeing Dr. Yancey from [facility]. He reports that he has been evaluated with an ultrasound of his prostate. He reports that he has not followed up with the urologist in several months. He is not the best historian regarding timeline and states that he has difficulty with attention issues. In September the patient was evaluated for passing small blood clots and had a CT of the abdomen pelvis at that time that demonstrated ill-defined mass at the right posterior bladder wall which could be hematoma or urothelial cancer it also demonstrated small nonobstructing left kidney stones at that time. He followed up with his urologist who told him to go to [facility] if he had any more problems because he could not see the records of our ER visit. His urologist stated that he would be setting up more imaging studies but the patient never had any further imaging studies. He presented back to the ER on November 22 due to increased urinary frequency and urgency. He also had a sensation of abdominal fullness for the last few weeks. He felt like he had of force any urine out. He denied any fevers or chills. He has not had any flank pain or dysuria. He denied any nausea vomiting or changes in his appetite. His weight has been stable and unchanged. He denies any environmental exposures to chemicals. He was initially only passing small amounts of blood that would dissipated in his head hit the toilet water. His CT demonstrated a dilated bladder. He had a Dias catheter placed. He was given a script for Bactrim and he was discharged again with instructions to contact his urologist. Patient presented back to the ER on the due to an obstructed catheter. His catheter was flushed and he was discharged back home. He returned again in the late evening of the same day for the same complaint. His catheter was exchanged at that time. Since his exchanges catheter has been draining but urine remains grossly bloody. Repeat CT of the abdomen pelvis with contrast was obtained at that time which demonstrated bladder wall thickening with intraluminal air and large enhancing mass at the base of the urinary bladder with small right posterior mass present but more difficult to differentiate given decreased intraluminal bladder volume. The patient still had moderate volume in his bladder despite presence of the catheter. CT also demonstrated incidental findings of esophagitis and gastritis. Patient denies any upper GI symptoms. He does have marked erythema noted to his soft palate and uvula but denies sore throat. He reports chronic allergic rhinitis a chronic postnasal drip. The patient reports that his weight is always between 160-170 lb. He reports that his mother has a history of multiple skin cancers. He does not know his father's past medical history but he has no known family history of bladder/urologic cancers. Review of Systems Review of Systems: 12 systems were reviewed with pertinent positives and negatives per HPI. Except as documented in the HPI, all other systems were reviewed and are negative. PMFSH Past Medical History Medical History History of cigar smoking Marijuana use Other chronic pain Smoking Vaping nicotine dependence, tobacco product Surgical History Surgical History (Updated 11/29/22 @ 06:37 by Emilia Beckman DO) History of oral surgery Complete dental extraction of all teeth Family History Family History (Updated 11/29/22 @ 06:39 by Emilia Beckman DO) Sibling Patient's brother is in good health Mother Cerebrovascular accident Skin cancer,
[2022-11-29 08:41] LABS: Hematocrit 42.1 % (42.0-52.0); Hemoglobin 14.2 g/dL (14.0-18.0); Mean Corpuscular HGB Conc 33.7 g/dl (32-36); Mean Corpuscular Hemoglobin 31.4 pg (26-34); Mean Corpuscular Volume 93.1 fl (80-100); Mean Platelet Volume 8.5 fl (7.4-10.4); Platelet Count Result 349 k/mm3 (150-375); Red Blood Count 4.52 M/mm3 (4.6-6.20); Red Cell Distribution Width 12.2 % (11.5-14.5); White Blood Count 11.7 K/mm3 (4.5-10.0)
[2022-11-29 08:49] LABS: Anion Gap 6 mmol/L (8-16); Blood Urea Nitrogen 14 mg/dL (9-20); Calcium 9.1 mg/dL (8.4-10.2); Carbon Dioxide 30 mmol/L (22-30); Chloride 101 mmol/L (98-107); Estimated CRCL calculation 91 ml/min; Estimated Glomerular Filt Rate > 60; Glucose 94 mg/dL (65-110); Potassium 4.3 mmol/L (3.4-5.0); Sodium 137 mmol/L (137-145)
--- NOTE | 2022-11-29 09:02 | PM.IMPN ---
Progress Note: A&P Assessment and Plan (1) Recurrent gross hematuria: Code(s): N02.9 - Recurrent and persistent hematuria with unspecified morphologic changes Status: Acute (2) Mass of urinary bladder: Code(s): N32.89 - Other specified disorders of bladder Status: Acute (3) Dias catheter in place: Code(s): Z97.8 - Presence of other specified devices Status: Acute (4) Vaping nicotine dependence, tobacco product: Code(s): F17.290 - Nicotine dependence, other tobacco product, uncomplicated Status: Acute Subjective Date/time seen: 11/29/22 09:02 Objective Data Vital Signs Vital Signs: Vital Signs - 24 hr 11/28/22 18:27 11/28/22 23:15 11/29/22 00:26 Temperature 98.5 F Pulse Rate 80 62 70 Respiratory Rate 18 16 18 Blood Pressure 113/71 108/76 106/77 Pulse Oximetry 97 100 98 Oxygen Delivery Room Air 11/29/22 01:52 11/29/22 02:41 11/29/22 02:29 Temperature 97.7 F Pulse Rate 56 L 59 L Respiratory Rate 16 18 Blood Pressure 110/76 128/85 Pulse Oximetry 98 99 Oxygen Delivery Room Air 11/29/22 05:35 11/29/22 08:39 Temperature 97 F L Pulse Rate 60 Respiratory Rate 16 Blood Pressure 116/64 Pulse Oximetry 100 99 Oxygen Delivery Room Air Intake/Output Intake/Output: Intake & Output 11/26/22 11/27/22 11/28/22 11/29/22 23:59 23:59 23:59 23:59 Intake Total 400 Balance 400 Meds/Results Medications: Active Medications Generic Name Dose Route Start Last Admin Trade Name Freq PRN Reason Stop Dose Admin Aripiprazole 5 mg 11/29/22 09:00 Aripiprazole 5 Mg Tablet PO DAILY JANIYA Atorvastatin Calcium 20 mg 11/29/22 09:00 Atorvastatin 20 Mg Tablet PO DAILY JANIYA Finasteride 5 mg 11/29/22 09:00 Finasteride 5 Mg Tablet PO DAILY JANIYA Fluticasone Propionate 1 spray 11/29/22 09:00 Fluticasone Propionate 0.05% Na Spr 16 Gm Btl (*Bkc) NASAL BID JANIYA Sertraline HCl 50 mg 11/29/22 09:00 Sertraline Hcl 50 Mg Tablet PO DAILY JANIYA Tamsulosin HCl 0.4 mg 11/29/22 09:00 Tamsulosin Hcl 0.4 Mg Capsule PO DAILY [facility] Trazodone HCl 50 mg 11/29/22 03:20 Trazodone Hcl 50 Mg Tablet PO QHS [facility] Trimethoprim/Sulfamethoxazole 1 tab 11/29/22 09:00 Sulfamethoxazole/Trimethoprim 800/160 Mg Ds Tablet PO 12/01/22 09:01 Q12HR [facility] Radiology Results: ITS Impressions Abdomen/Pelvis CT 11/28/22 21:47 IMPRESSION: Mild esophagitis/gastritis. Redemonstration of a multiple bladder masses. Moderate urinary bladder fluid despite the presence of a Dias catheter, correlate with catheter function. Bladder wall thickening which may be secondary to chronic obstruction, incomplete distention, and/or cystitis. Labs Labs: Laboratory Results - last 24 hr 11/28/22 11/29/22 20:23 08:32 WBC 12.2 H 11.7 H RBC 4.17 L 4.52 L Hgb 13.1 L 14.2 Hct 38.5 L 42.1 MCV 92.3 93.1 MCH 31.4 31.4 MCHC 34.0 33.7 RDW 12.1 12.2 Plt Count 349 349 MPV 8.8 8.5 Immature Gran % (Auto) 0.2 Neut % (Auto) 74.0 H Lymph % (Auto) 18.9 [place] % (Auto) 5.8 Eos % (Auto) 0.6 Baso % (Auto) 0.5 Lymph # (Auto) 2.30 [place] # (Auto) 0.7 H Eos # (Auto) 0.1 Baso # (Auto) 0.1 Abs Immat Gran (auto) 0.02 Absolute Neuts (auto) 9.0 H Absolute Nucleated RBC 0.0 Nucleated RBC % 0.0 PT 13.3 INR 1.0 APTT 25.6 Sodium 137 137 Potassium 4.0 4.3 Chloride 103 101 Carbon Dioxide 25 30 Anion Gap 9 6 L BUN 17 14 Creatinine 1.10 0.90 Estim Creat Clear Calc 76 91 Estimated GFR > 60 > 60 Glucose 99 94 Calcium 9.0 9.1 Total Bilirubin 0.3 AST 40 ALT 38 Alkaline Phosphatase 89 Total Protein 8.0 Albumin 4.7
[2022-11-29] MEDS: SERTRALINE HCL 50 MG TABLET PO (09:14)
[2022-11-29] MEDS: TAMSULOSIN HCL 0.4 MG CAPSULE PO (09:15)
[2022-11-29] MEDS: FINASTERIDE 5 MG TABLET PO (09:15)
[2022-11-29] MEDS: FLUTICASONE PROPIONATE 0.05% NA SPR 16 GM BTL (*BKC) 1 SPRAY NASAL (09:15)
[2022-11-29] MEDS: ATORVASTATIN 20 MG TABLET PO (09:15)
[2022-11-29] MEDS: ARIPiprazole 5 MG TABLET PO (09:15)
[2022-11-29] MEDS: SULFAMETHOXAZOLE/TRIMETHOPRIM 800/160 MG DS TABLET 1 TAB PO (09:15)
--- NOTE | 2022-11-29 10:07 | WPDURCON ---
Assessment and Plan Assessment and plan (1) Recurrent gross hematuria: Code(s): N02.9 - Recurrent and persistent hematuria with unspecified morphologic changes Status: Acute Assessment and Plan: recurrent GH, pryor, mass of urinary bladder. His urine culture is pending , he is on AbX, his WBC is improving. No need for CBI. we will send urine cytology I had long discussion with patient he was informed of CT findings he is aware of mass in the bladder concerning for a bladder cancer. I have recommended he undergo cystoscopy with TURBT and instillation of 2 Gr gemcitabine. He has eaten breakfast and is currently drinking coffee. His catheter is draining, he is leaning to have this done electively as outpatient. We reviewed the pertinent risks, benefits/alternatives/nature of procedure and potential complications. All ? answered. (2) Pryor catheter in place: Code(s): Z97.8 - Presence of other specified devices Status: Acute (3) Mass of urinary bladder: Code(s): N32.89 - Other specified disorders of bladder Status: Acute Urology Consult Note HPI Date Seen: 11/29/22 Requesting Physician: Emilia Beckman DO Primary Care Provider: Janki Guevara, PA Consult Narrative Narrative: Deven Aguilera is a 47 year old male with recurrent gross hematuria x 3 months. Cecelia was admitted due to hematuria and elevated wbc. Was seen in ER yesterday, catheter was flushed and was discharged only to return. He was placed on Bactrim. He feels well this am. The gross hematuria started about 3 months ago. He has been followed by his primary urologist in [facility], Dr Yancey. Pt states he has been referred to [facility] for further workup but has not heard anything. He states he has never had cystoscopy before. he works as a cook. + Significant hx of smoking > 1ppd x 15 years, currently Vapes. He has had 3 CT scans showing bladder masses most recently yesterday with a 4-5cm mass at base of bladder. He denies clots. He is currently enjoying a cp of coffee this morning. Catheter is draining well. Prior to pryor he had significant irritative voiding symptoms with urgency, frequency and nocturia q 45 min. Review of Systems Constitutional: Constitutional: Denies body ache(s), Denies chills, Denies difficulty sleeping and Denies fatigue Eyes: Eyes: Reports as per HPI and Reports no additional eye complaints ENT: Reports system reviewed and no additional complaints, except as documented and Reports Normal hearing present Gastrointestinal: Gastrointestinal: Reports no additional gastrointestinal complaints, Denies abdominal pain and Denies melena Genitourinary: Genitourinary: Reports as per HPI Musculoskeletal: Musculoskeletal: Reports no additional musculoskeletal complaints and Denies arthralgias Integumentary/Breasts: Skin/Breast: Reports system reviewed and no additional complaints, except as docu Neurologic: Reports system reviewed and no additional complaints, except as documented Psychiatric: Psychiatric: Reports no additional psychiatric complaints PMFSH Past Medical History Medical History History of cigar smoking Marijuana use Other chronic pain Smoking Vaping nicotine dependence, tobacco product Surgical History Surgical History (Updated 11/29/22 @ 06:37 by Emilia Beckman DO) History of oral surgery Complete dental extraction of all teeth Family History Family History (Updated 11/29/22 @ 06:39 by Emilia Beckman DO) Sibling Patient's brother is in good health Mother Cerebrovascular accident Skin cancer, basal cell Pacemaker, Onset Age: 36 Sinus arrest, Onset Age: 36 Father Unknown family medical history Social History Social History (Updated 11/29/22 @ 06:40 by Emilia Beckman DO) Social History: The patient lives with his of 9 years. He has 3 step children 10 step grandchildren and 1 great grandchild. They have 2 small dogs and 3 lizards
[2022-11-29 12:25] LABS: Bacteria Urine None Seen /hpf; Non Pathogenic Casts 0-2; RBC Urine >100 /hpf (0-2); Squamous Epithelial Cell Urine None seen /hpf (Few)
[2022-11-29 12:40] LABS: Appearance Urine Clear (Clear); Bilirubin Urine Negative (Negative); Blood Urine 3+ (Negative); Color Urine Orange (Yellow); Glucose Urine UA Negative (Negative); Ketones Urine Negative (Negative); Leukocyte Esterase Ur 1+ LEU/UL (Negative); Nitrate Urine Negative (Negative); Protein Urine 1+ mg/dL (Negative); Specific Grav Ur 1.007 (1.001-1.035); pH Urine 8.5 (5.0-9.0)
[2022-11-29 12:44] LABS: Add Urine Microscopic? YES
--- NOTE | 2022-11-29 13:15 | PM.DS ---
DS: Admitting Diagnosis Discharge Date November 29, 2022 Admitting Diagnosis Hematuria and urinary retention. DS: Discharge Diagnosis Discharge Diagnosis (1) Recurrent gross hematuria: Code(s): N02.9 - Recurrent and persistent hematuria with unspecified morphologic changes Status: Acute Assessment and Plan: Patient Dias exchanged for larger size. Did not require CBI Draining appropriately with red urine (2) Mass of urinary bladder: Code(s): N32.89 - Other specified disorders of bladder Status: Acute Assessment and Plan: Will need worked up as an outpatient for TURBT with Urology. He will need to hold aspirin and blood thinner and 1 week prior to his TURBT (3) Dias catheter in place: Code(s): Z97.8 - Presence of other specified devices Status: Acute Assessment and Plan: Continue with chronic Dias UTI suspected on admission he was started on Bactrim. (4) Vaping nicotine dependence, tobacco product: Code(s): F17.290 - Nicotine dependence, other tobacco product, uncomplicated Status: Acute Assessment and Plan: Cessation counseling Patient is not ready to quit smoking. Plan Patient was seen by Urology today and they are okay with him discharging home with an outpatient follow-up for TURBT for suspected bladder cancer. He is tolerating a diet, has catheter has been exchanged is flowing without obstruction. Patient understands how to manually irrigate Dias at home. He was started on Bactrim this admission for a UA concerning UTI. Urine cultures are pending. There is no need for CBI and the patient wants to go home. Urology is fine with this and medically he is stable to discharge. DS: Summary Hospital Course Hospital Course: 47-year-old male with past medical history of BPH, bipolar disorder, depression and tobacco use who presented to the ER with gross hematuria causing urinary catheter obstruction.? The patient reports that he was diagnosed with BPH in May of this year.? He was seeing Dr. Yance[facility] from [facility].? He reports that he has been evaluated with an ultrasound of his prostate.? He reports that he has not followed up with the urologist in several months.? He is not the best historian regarding timeline and states that he has difficulty with attention issues.? In September the patient was evaluated for passing small blood clots and had a CT of the abdomen pelvis at that time that demonstrated ill-defined mass at the right posterior bladder wall which could be hematoma or urothelial cancer it also demonstrated small nonobstructing left kidney stones at that time.? He followed up with his urologist who told him to go to [facility] if he had any more problems because he could not see the records of our ER visit.? His urologist stated that he would be setting up more imaging studies but the patient never had any further imaging studies.? He presented back to the ER on November 22 due to increased urinary frequency and urgency.? He also had a sensation of abdominal fullness for the last few weeks.? He felt like he had of force any urine out.? He denied any fevers or chills.? He has not had any flank pain or dysuria.? He denied any nausea vomiting or changes in his appetite.? His weight has been stable and unchanged.? He denies any environmental exposures to chemicals.? He was initially only passing small amounts of blood that would dissipated in his head hit the toilet water.? His CT demonstrated a dilated bladder.? He had a Dias catheter placed.? He was given a script for Bactrim and he was discharged again with instructions to contact his urologist.? Patient presented back to the ER on the due to an obstructed catheter.? His catheter was flushed and he was discharged back home.? He returned again in the late evening of the same day for the same complaint.? His catheter was exchanged at that time.? Since his exchanges catheter has been draining but urine r
== END 2022-11-29 14:28 | disposition home or self-care (01) ==
LOC: ANHED 23:23 → ANH3MED 11-29 13:37
PROVIDERS: Admitting Provider Internal Medicine; Emergency Provider Emergency Medicine; PCP Physician Assistant; Visit Provider Student in an Organized Health Care Education/Training Program
DX: N02.9 Recurrent and persistent hematuria with unspecified morphologic changes (principal); N40.1 Benign prostatic hyperplasia with lower urinary tract symptoms; R34 Anuria and oliguria; B95.7 Other staphylococcus as the cause of diseases classified elsewhere; N32.89 Other specified disorders of bladder; F31.9 Bipolar disorder, unspecified; K20.90 Esophagitis, unspecified without bleeding; K29.70 Gastritis, unspecified, without bleeding; Z96.0 Presence of urogenital implants; F12.90 Cannabis use, unspecified, uncomplicated; Z79.82 Long term (current) use of aspirin; Z79.899 Other long term (current) drug therapy
CPT/HCPCS: 36415; 74177; 80048; 80053; 81001; 85025; 85027; 85610; 85730; 87077; 87086; 87088; 87186; 99285; A9270; G0378; G0379; Q9967

== ENCOUNTER 2022-12-13 09:26 | Emergency (ER) | payer OTHER, SELFPAY ==
[2022-12-13 09:37] VITALS: BP 107/62; PULSE 67; RESP 20; TEMP 37; O2SAT 100
--- NOTE | 2022-12-13 09:50 | ED.GENADULT ---
HPI - General Adult General Chief complaint: Urogenital-Male Stated complaint: catheter prob Time Seen by Provider: 12/13/22 09:27 History of Present Illness HPI narrative: 47-year-old male presented the ED for evaluation of Dias catheter issue. Patient does have hematuria and a bladder mass that is being evaluated by urology and patient will be seen by urologist at [facility]. Patient does have indwelling Dias catheter due to enlarged prostate. Patient has had frequent issues with hematuria. Patient states this morning he drained his Dias bag but since draining the bag he has had no refilling of the bag and does have increased urinary pressure. Patient attempted to flush the Dias at home and had no success. Patient denies any pain but does complain of increased abdominal pressure. Patient denies associate nausea vomiting diarrhea or fevers. Related Data Home Medications Medication Instructions Recorded Confirmed aripiprazole 10 mg tablet 5 mg PO DAILY 11/29/22 11/29/22 aspirin 81 mg tablet,delayed 81 mg PO DAILY 11/29/22 11/29/22 release atorvastatin 20 mg tablet 20 mg PO DAILY 11/29/22 11/29/22 finasteride 5 mg tablet 5 mg PO DAILY 11/29/22 11/29/22 sertraline 50 mg tablet 50 mg PO DAILY 11/29/22 11/29/22 tamsulosin 0.4 mg capsule 0.4 mg PO DAILY 11/29/22 11/29/22 trazodone 50 mg tablet 50 mg PO QHS 11/29/22 11/29/22 Allergies Allergy/AdvReac Type Severity Reaction Status Date / Time pollen extracts Allergy Congested Verified 12/13/22 09:46 Review of Systems Review of Systems: All systems reviewed & are unremarkable except as noted in HPI and below PMFSH Past Medical History Medical History History of cigar smoking Marijuana use Other chronic pain Smoking Vaping nicotine dependence, tobacco product Surgical History Surgical History (Updated 11/29/22 @ 06:37 by Emilia Beckman DO) History of oral surgery Complete dental extraction of all teeth Family History Family History (Updated 11/29/22 @ 06:39 by Emilia Beckman DO) Sibling Patient's brother is in good health Mother Cerebrovascular accident Skin cancer, basal cell Pacemaker, Onset Age: 36 Sinus arrest, Onset Age: 36 Father Unknown family medical history Social History Social History (Updated 11/29/22 @ 06:40 by Emilia Beckman DO) Social History: The patient lives with his of 9 years. He has 3 step children 10 step grandchildren and 1 great grandchild. They have 2 small dogs and 3 lizards in the home. The patient used to smoke a pack of cigarettes per day since he was a teenager. He converted to vaping 3 or 4 years ago. He smokes marijuana frequently and almost an every day basis. He denies significant alcohol use. Code status: Full code Surrogate decision maker: Smoking packs per day: 1 Smoking cigarettes per day: 20.0 Years smoked: 38 Smoking pack-years: 38.00 Smoking status: Current every day smoker Tobacco type: e-cigarettes/vaping Second hand tobacco smoke exposure: Yes Alcohol intake: never Substance use: current Substance use type: marijuana Last use: 11/29/22 Lack of Transportation: No Lack of Food: Never True Current Housing: I Have Housing Concerned About Future Housing: No Difficulty Paying Gas/Electric Bills: No Difficulty Paying for Meds: No Currently Unemployed: No Education: High School Diploma/GED Difficulty w/ Childcare or Family Care: No Spiritual care concerns: No Exam Narrative: APPEARANCE: Well appearing, no pain, no distress, well-nourished. HEAD: normocephalic, atraumatic. EYES: PERRLA/EOMI, conjunctivae clear. NOSE: Normal no drainage NECK: Supple. No adenopathy, no masses. RESPIRATORY: Airway patent, respirations nonlabored. Clear to auscultation bilaterally, no rales, rhonchi, wheezing. CARDIOVASCULAR: Regular rate and rhythm without murmurs rubs or gallops. ABDOMINAL: Soft, suprapubic tenderness MUSCULOSKELETAL: Move
== END 2022-12-13 10:32 | disposition home or self-care (01) ==
PROVIDERS: Emergency Provider Emergency Medicine; PCP Physician Assistant
DX: T83.098A Other mechanical complication of other urinary catheter, initial encounter (principal); Y84.6 Urinary catheterization as the cause of abnormal reaction of the patient, or of later complication, without mention of misadventure at the time of the procedure; Y73.8 Miscellaneous gastroenterology and urology devices associated with adverse incidents, not elsewhere classified
CPT/HCPCS: 51702; 99283

== ENCOUNTER 2022-12-27 19:15 | Emergency (ER) | payer OTHER, SELFPAY ==
[2022-12-27 19:30] VITALS: BP 120/76; PULSE 64; RESP 16; TEMP 36.7; O2SAT 96
--- NOTE | 2022-12-27 22:25 | ED.GENADULT ---
HPI - General Adult General Chief complaint: Urogenital-Male Stated complaint: Clogged cath Time Seen by Provider: 12/27/22 22:07 History of Present Illness HPI narrative: 47-year-old male presented to the emergency department for evaluation of urinary catheter issue. Patient does have a bladder mass and is following up with [facility] and is supposed to have surgery tomorrow. Patient states over the course of the last few days he has had decreased urinary outflow through the Dias catheter and then had complete blocking of the urinary flow today and patient does describe increased urinary pressure. Related Data Home Medications Medication Instructions Recorded Confirmed aripiprazole 10 mg tablet 5 mg PO DAILY 11/29/22 11/29/22 aspirin 81 mg tablet,delayed 81 mg PO DAILY 11/29/22 11/29/22 release atorvastatin 20 mg tablet 20 mg PO DAILY 11/29/22 11/29/22 finasteride 5 mg tablet 5 mg PO DAILY 11/29/22 11/29/22 sertraline 50 mg tablet 50 mg PO DAILY 11/29/22 11/29/22 tamsulosin 0.4 mg capsule 0.4 mg PO DAILY 11/29/22 11/29/22 trazodone 50 mg tablet 50 mg PO QHS 11/29/22 11/29/22 Allergies Allergy/AdvReac Type Severity Reaction Status Date / Time pollen extracts Allergy Congested Verified 12/13/22 09:46 Review of Systems Review of Systems: All systems reviewed & are unremarkable except as noted in HPI and below PMFSH Past Medical History Medical History History of cigar smoking Marijuana use Other chronic pain Smoking Vaping nicotine dependence, tobacco product Surgical History Surgical History (Updated 11/29/22 @ 06:37 by Emilia Beckman DO) History of oral surgery Complete dental extraction of all teeth Family History Family History (Updated 11/29/22 @ 06:39 by Emilia Beckman DO) Sibling Patient's brother is in good health Mother Cerebrovascular accident Skin cancer, basal cell Pacemaker, Onset Age: 36 Sinus arrest, Onset Age: 36 Father Unknown family medical history Social History Social History (Updated 11/29/22 @ 06:40 by Emilia Beckman DO) Social History: The patient lives with his of 9 years. He has 3 step children 10 step grandchildren and 1 great grandchild. They have 2 small dogs and 3 lizards in the home. The patient used to smoke a pack of cigarettes per day since he was a teenager. He converted to vaping 3 or 4 years ago. He smokes marijuana frequently and almost an every day basis. He denies significant alcohol use. Code status: Full code Surrogate decision maker: Smoking packs per day: 1 Smoking cigarettes per day: 20.0 Years smoked: 38 Smoking pack-years: 38.00 Smoking status: Current every day smoker Tobacco type: e-cigarettes/vaping Second hand tobacco smoke exposure: Yes Alcohol intake: never Substance use: current Substance use type: marijuana Last use: 11/29/22 Lack of Transportation: No Lack of Food: Never True Current Housing: I Have Housing Concerned About Future Housing: No Difficulty Paying Gas/Electric Bills: No Difficulty Paying for Meds: No Currently Unemployed: No Education: High School Diploma/GED Difficulty w/ Childcare or Family Care: No Spiritual care concerns: No Exam Narrative: APPEARANCE: Well appearing, no pain, no distress, well-nourished. HEAD: normocephalic, atraumatic. EYES: PERRLA/EOMI, conjunctivae clear. NOSE: Normal no drainage NECK: Supple. No adenopathy, no masses. RESPIRATORY: Airway patent, respirations nonlabored. Clear to auscultation bilaterally, no rales, rhonchi, wheezing. CARDIOVASCULAR: Regular rate and rhythm without murmurs rubs or gallops. ABDOMINAL: Soft, nontender, nondistended, normal bowel sounds MUSCULOSKELETAL: Moves all extremities. Strength/ROM intact, No edema, No calf tenderness. NEURO: Alert. Cranial nerves II through XII intact. Grossly intact SKIN: Warm, dry. Normal Color Course Course Emergency Course: Patient had Dias ca
== END 2022-12-27 23:20 | disposition home or self-care (01) ==
PROVIDERS: Emergency Provider Emergency Medicine; PCP Physician Assistant
DX: T83.098A Other mechanical complication of other urinary catheter, initial encounter (principal); N32.89 Other specified disorders of bladder; F17.290 Nicotine dependence, other tobacco product, uncomplicated
CPT/HCPCS: 51702; 99283